=== PATIENT | male | born 1980 | race Two or more races ===

== ENCOUNTER 2019-03-27 19:00 | Inpatient (IN) | payer SELFPAY ==
[~2019-03-27] VITALS: Ht 193 cm; Wt 134.0 kg
[2019-03-27 19:40] LABS: Basophils # (auto) 0.1 uL; Basophils % (auto) 0.6 % (0.0-2.0); Eosinophils # (auto) 0 uL; Hematocrit 42.7 % (41.0-53.0); Hemoglobin 14.9 g/dL (13.5-17.5); Lymphocytes # (auto) 0.9 uL; Lymphocytes % (auto) 5.9 % (10.0-50.0); Mean Corpuscular Hgb Conc. 34.8 g/dL (32.0-36.0); Mean Corpuscular Volume 91.8 fL (80.0-100.0); Monocytes # (auto) 0.9 uL; Monocytes % (auto) 5.7 % (0.0-12.0); Neutrophils # (auto) 13.7 uL; Neutrophils % (auto) 87.8 % (37.0-80.0); Platelet Count (auto) 249 10^3/uL (140-450); Red Blood Cells 4.64 10^6/uL (4.5-5.90); Red Cell Distribution Width 13.1 % (11.8-14.3); White Blood Cell 15.6 10^3/uL (4.4-10.8)
[2019-03-27] MEDS ORDERED: SODIUM CHLORIDE 0.9% 2,000 ML IV ONE (19:45)
[2019-03-27] MEDS ORDERED: SODIUM CHLORIDE 0.9% 1,000 ML IVB ONE (19:59)
[2019-03-27] MEDS ORDERED: ONDANSETRON HCL 4 MG/2 ML VIAL IV ONE (20:00)
[2019-03-27 20:25] LABS: Albumin 3.9 g/dL (3.4-5.0); Calcium 8.6 mg/dL (8.5-10.1); Potassium 3.8 mmol/L (3.5-5.1)
[2019-03-27 20:28] LABS: BUN/Creatinine Ratio 19.8; Total Protein 7.3 g/dL (6.4-8.2)
[2019-03-27] MEDS ORDERED: cefTRIAXone 1GM/50ML D5W 50 ML IV ONE (22:30)
[2019-03-27] MEDS ORDERED: PROMETHAZINE HCL 25 MG/ML 1ML IV ONE (22:30)
[2019-03-27] MEDS ORDERED: MORPHINE SULF INJ 2 MG/ML SYRINGE 1ML IV ONE (22:30)
[2019-03-27 22:54] LABS: INR < 0.93 (0.9-1.15); Partial Thromboplastin Time 25.9 sec (23.64-32.05)
[2019-03-27] MEDS ORDERED: ONDANSETRON HCL 4 MG/2 ML VIAL IV PRN (23:30)
[2019-03-27] MEDS ORDERED: metroNIDAZOLE 500MG/100ML 100 ML IV ONE (23:30)
[2019-03-27] MEDS ORDERED: MORPHINE SULF INJ 2 MG/ML SYRINGE 1ML IV PRN (23:30)
[2019-03-27] MEDS ORDERED: ACETAMINOPHEN 500 MG TAB PO PRN (23:30)
[2019-03-27 23:56] VITALS: BP 113/58
[2019-03-28] MEDS: SODIUM CHLORIDE 0.9% 1,000 ML IV SCH ×3 (00:23→19:30)
--- NOTE | 2019-03-28 00:23 | NUR ---
MS admit from [facility] admitted to [facility] unit after SBAR received. Patient oriented to Matthew champion RN, unit, room 248, bed B, and unit policies regarding patient care and visiting hours. Patient VS taken, weighed by bedscale and encouraged to call if they need something. All questions and concerns addressed, patient verbalized understanding.
[2019-03-28 00:26] VITALS: BP 113/58
[2019-03-28 05:00] VITALS: BP 101/58
[2019-03-28] MEDS: metroNIDAZOLE 500MG/100ML 100 ML IV SCH ×3 (05:35→22:45)
[2019-03-28 07:06] LABS: Basophils # (auto) 0 uL; Basophils % (auto) 0.4 % (0.0-2.0); Eosinophils # (auto) 0 uL; Eosinophils % (auto) 0.5 % (0.0-7.0); Hematocrit 36.7 % (41.0-53.0); Hemoglobin 12.7 g/dL (13.5-17.5); Lymphocytes # (auto) 1.4 uL; Lymphocytes % (auto) 15.4 % (10.0-50.0); Mean Corpuscular Hemoglobin 32.3 pg (28.0-32.0); Mean Corpuscular Hgb Conc. 34.7 g/dL (32.0-36.0); Mean Corpuscular Volume 93.1 fL (80.0-100.0); Monocytes # (auto) 0.7 uL; Monocytes % (auto) 7.9 % (0.0-12.0); Neutrophils % (auto) 75.8 % (37.0-80.0); Platelet Count (auto) 183 10^3/uL (140-450); Red Blood Cells 3.94 10^6/uL (4.5-5.90); Red Cell Distribution Width 13.5 % (11.8-14.3); White Blood Cell 9.2 10^3/uL (4.4-10.8)
--- NOTE | 2019-03-28 07:30 | NUR ---
Opening Shift Note Assumed care of patient, awake and alert. No S/S of distress/SOB. Denies abd pain at this time. Instructed on POC and to call for assist PRN, will continue to monitor for changes Q1hr and PRN.
[2019-03-28 07:33] LABS: Calcium 8.1 mg/dL (8.5-10.1); Potassium 3.8 mmol/L (3.5-5.1)
[2019-03-28 07:35] LABS: BUN/Creatinine Ratio 15.1
[2019-03-28] MEDS ORDERED: MIDAZOLAM HCL 1MG/1ML-2 ML VIAL ONE (07:50)
[2019-03-28] MEDS ORDERED: ROCURONIUM 10MG/ML 10ML VIAL IV ONE (07:50)
[2019-03-28] MEDS ORDERED: PROPOFOL 10 MG/ML 20 ML IV ONE (07:50)
[2019-03-28] MEDS ORDERED: LIDOCAINE 1% (LOCAL ANESTH.) PF 5ml SDV ONE (07:52)
--- NOTE | 2019-03-28 07:54 | NUR ---
Off unit for procedure
[2019-03-28] MEDS ORDERED: ceFAZolin 1GM/50ML 50 ML IV ONE (07:56)
--- NOTE | 2019-03-28 08:17 | NUR ---
Off unit for procedure Addendum: 03/28/19 at 0818 by Kailey Taylor RN Amended: Links added.
[2019-03-28] MEDS ORDERED: POVIDONE IODINE 10 % TOPICAL OINT 30GM TOP ONE (08:18)
[2019-03-28] MEDS ORDERED: SUCCINYLCHOLINE CHLORIDE 20 MG/ML 10ML VIAL IV ONE (08:26)
[2019-03-28] MEDS ORDERED: METOCLOPRAMIDE HCL 5MG/ml INJ 2ml VIAL ONE (08:33)
[2019-03-28] MEDS ORDERED: fentaNYL CITRATE 100 MCG/2 ML VL ONE (08:42)
[2019-03-28] MEDS ORDERED: SODIUM CHLORIDE LOCK 10 ML ONE (08:55)
[2019-03-28] MEDS ORDERED: ePHEDrine SULFATE 50 MG/ML AMP ONE (08:55)
[2019-03-28] MEDS ORDERED: HYDROmorphone HCL 2 MG/ML VL IV PRN (09:00)
[2019-03-28] MEDS ORDERED: NALOXONE HCL 0.4 MG/ML VIAL IV PRN (09:00)
[2019-03-28] MEDS ORDERED: ONDANSETRON HCL 4 MG/2 ML VIAL IV ONE (09:00)
[2019-03-28] MEDS ORDERED: NEOSTIGMINE 1 MG/ML INJ (10mg/10ML VIAL) ONE (09:11)
[2019-03-28] MEDS ORDERED: GLYCOPYRROLATE 0.2 MG/ML 1ML VIAL ONE (09:11)
[2019-03-28 09:15] VITALS: BP 92/49
[2019-03-28] MEDS: HYDROmorphone HCL 2 MG/ML VL IV PRN ×2 (09:34→09:44)
--- NOTE | 2019-03-28 10:20 | NUR ---
S/P OR assessment Patient to room 248B following O.R. procedure. Vital signs taken, surgical site assessed for redness, swelling, or bleeding. Patient instructed on need to inform staff immediately for any pain, swelling, bleeding or pulling or popping sensations at surgical site. Patient verbalized understanding.
[2019-03-28] MEDS: LEVOFLOXACIN 500MG 100 ML IV SCH (10:23)
--- NOTE | 2019-03-28 10:56 | NUR ---
OFF UNIT Addendum: 03/28/19 at 1057 by Kailey Taylor RN Amended: Julius added. Addendum: 03/28/19 at 1205 by Kailey Taylor RN Note was originally charted at [id number]
[2019-03-28 11:12] LABS: Urine Bacteria NONE SEEN /hpf (None Seen); Urine Blood TRACE /uL (Negative); Urine Mucus FEW (None Seen); Urine Specific Gravity 1.016 (1.001-1.035); Urine WBC 8 /hpf (0 - 3)
[2019-03-28 11:23] LABS: Alcohol, Urine < 3.0 mg/dL (0-5); Amphetamine Screen, Urine NEGATIVE (NEGATIVE); Barbiturate Scree,Urine NEGATIVE (NEGATIVE); Benzodiazephine Screen, Urine NEGATIVE (NEGATIVE); Cannabinoid Screen, Urine NEGATIVE (NEGATIVE); Cocaine Screen, Urine NEGATIVE (NEGATIVE); Opiate Scree,Urine NEGATIVE (NEGATIVE); Phencyclidine Screen, Urine NEGATIVE (NEGATIVE)
--- NOTE | 2019-03-28 13:06 | NUR ---
at bedside Dr. Melendez at bedside. Updated on POC. NAD.
[2019-03-28 13:07] VITALS: BP 105/55
--- NOTE | 2019-03-28 13:29 | NUR ---
Ambulation Patient ambulated in [place] with primary RN independently approx 500 ft. Gait is steady and upright. No c/o pain. Pt tolerated ambulation well
--- NOTE | 2019-03-28 15:48 | NUR ---
Ambulation Patient ambulated in [place] with IV pole, independently approx 100 ft. Gait is steady and upright. No c/o pain. Pt tolerated ambulation well
[2019-03-28 16:38] VITALS: BP 108/66
--- NOTE | 2019-03-28 18:00 | NUR ---
Ambulation Patient ambulated in [place] with IV pole, independently approx 250 ft. Gait is steady and upright. No c/o pain. Pt tolerated ambulation well
[2019-03-28 22:00] VITALS: BP 113/62
[2019-03-29 05:00] VITALS: BP 113/65
[2019-03-29] MEDS: metroNIDAZOLE 500MG/100ML 100 ML IV SCH (06:05)
--- NOTE | 2019-03-29 07:45 | NUR ---
Opening Shift Note Assumed care of patient, awake and alert. No S/S of distress/SOB or pain. Instructed on POC and to call for assist PRN, will continue to monitor for changes Q1hr and PRN.
--- NOTE | 2019-03-29 07:55 | NUR ---
DR DUENAS AT BEDSIDE. DR DUENAS UPDATING PLAN OF CARE. PER MD ADVANCE DIET TOLERATED.
[2019-03-29 09:00] VITALS: BP 102/61
[2019-03-29] MEDS: LEVOFLOXACIN 500MG 100 ML IV SCH (10:23)
--- NOTE | 2019-03-29 10:30 | NUR ---
DR ZIMMERMAN-D/C PAIN MEDS AT [facility]. UPDATED ON POC FOR D/C. MD OFFERED PAIN MEDICATION TO BE INCLUDED IN D/C. PATIENT DECLINED AND REPORTS HE WILL TAKE OTC PAIN MEDS PRN.
--- NOTE | 2019-03-29 12:56 | NUR ---
F/U APPT ATTEMPTED TO MAKE F/U APPT WITH MD DUENAS. NO ANSWER IN OFFICE. WILL HAVE PATIENT MAKE HIS OWN APPT
[2019-03-29 13:04] VITALS: BP 104/69
--- NOTE | 2019-03-29 13:44 | NUR ---
Discharge instructions given as ordered. Encourage to follow up with PMD as instructed. All questions and concerns addressed. Patient verbalized understanding. Medication reconciliation form completed and copy given to patient. IV removed with catheter intact, pressure dressing applied. Patient taken to vehicle via ambulation with all personal belongings, accompanied by staff and family member. No distress noted at time of departure.
== END 2019-03-29 13:45 | disposition home or self-care (01) | DRG 338 ==
LOC: ER 19:02 → OVERFLOW 19:03 → EAST 23:39
PROVIDERS: ADMIT Nurse Practitioner Family; ATTEND Internal Medicine
PROC: 0DTJ4ZZ Resection of Appendix, Percutaneous Endoscopic Approach (ICD-10-PCS; principal; 2019-03-28 08:31)
DX: K35.33 Acute appendicitis with perforation, localized peritonitis, and gangrene, with abscess (principal); K85.90 Acute pancreatitis without necrosis or infection, unspecified; R65.10 Systemic inflammatory response syndrome (SIRS) of non-infectious origin without acute organ dysfunction; F17.210 Nicotine dependence, cigarettes, uncomplicated; E66.01 Morbid (severe) obesity due to excess calories; Z82.49 Family history of ischemic heart disease and other diseases of the circulatory system; Z88.6 Allergy status to analgesic agent; Z68.36 Body mass index [BMI] 36.0-36.9, adult; Z79.899 Other long term (current) drug therapy
CPT/HCPCS: 36415; 71045; 74176; 80048; 80053; 80307; 81001; 82962; 83690; 83735; 85025; 85610; 85730; 86850; 86900; 86901; 94761; 96361; 96365; 96367; 96375; G0378; J0330; J0690; J0696; J1956; J2250; J2405; J2704; J3490